=== PATIENT | female | born 1985 | race Caucasian/White ===

== ENCOUNTER 2016-07-04 21:51 | Emergency (ER) | payer MEDICAID, OTHER ==
--- NOTE | 2016-07-04 22:04 | EDM.PDOC ---
ED HPI GENERAL MEDICAL PROBLEM - General Chief Complaint: Trauma Stated Complaint: stepped on a nail left foot Time Seen by Provider: 07/04/16 21:58 Source of Information: Reports: Patient, RN, RN Notes Reviewed History Limitations: Reports: No Limitations - History of Present Illness INITIAL COMMENTS - FREE TEXT/NARRATIVE: Patient presents to the ED at [facility] after she stepped on a nail tacked to a board. Patient is concerned about tetanus. She states its been over 20 years since her last tetanus immunization. Patient states she has some mild pain on the bottom of her mid foot. No previous injury or trauma. No previous left foot surgeries. Onset: Today Onset Date: 07/04/16 Onset Time: 21:30 Location: Reports: Lower Extremity, Left Quality: Reports: Sharp Severity: Mild left foot Pain Score (Numeric/FACES): 4 - Related Data Allergies Allergy/AdvReac Type Severity Reaction Status Date / Time nickel Allergy Rash Verified 07/04/16 22:12 Home Meds: Home Meds Levonorgestrel [Mirena] 1 ea VAG ASDIRECTED 05/26/14 [History] Past Medical History - Past Health History Medical/Surgical History: Denies Medical/Surgical History Social & Family History - Tobacco Use Smoking Status *Q: Current Every Day Smoker Years of Tobacco use: 9 - Alcohol Use Days Per Week of Alcohol Use: 0 - Recreational Drug Use Recreational Drug Use: Yes Drug Use in Last 12 Months: No Recreational Drug Type: Reports: Marijuana/Hashish Review of Systems - Review of Systems Review Of Systems: See Below Constitutional: Denies: Chills, Fever, Weakness Respiratory: Denies: Shortness of Breath, Cough Cardiovascular: Denies: Chest Pain, Palpitations Musculoskeletal: Reports: Foot Pain (left) Skin: Reports: Wound (bottom of left foot) Neurological: Reports: No Symptoms. Denies: Numbness, Paresthesia, Tingling Trauma Exam - Physical Exam Exam: See Below Exam Limited By: No Limitations General Appearance: Reports: Alert, No Apparent Distress Respiratory Exam: Reports: No Respiratory Distress, Lungs Clear, Normal Breath Sounds Cardiovascular: Reports: Regular Rate, Rhythm Extremities: Normal Range of Motion, Tenderness (bottom of left foot), Other ( 0.1cm puncture wound to bottom of mid left foot; small grade venous ooze; no evidence of foreign body) Neurologic: Reports: Alert, Oriented x 3 Skin: Reports: Normal Color, Warm/Dry - Luis Coma Score Best Eye Response (Ware): (4) Open Spontaneously Best Verbal Response (Luis): (5) Oriented Best Motor Response (Ware): (6) Obeys Commands Luis Total: 15 ED TRAUMA EXTREMITY PROCEDURES - Laceration/Wound Repair Left Foot Lac/wound length in cm: 0.1 Appearance: superficial, mildly contaminated Distal NVT: neuro & vascular intact, no tendon injury Skin prep: other (left foot soaked in chlorhexidine bath) Exploration/Debridement/Repair: wound explored, in a bloodless field, explored to base, no foreign material found Closed with: dermabond Course - Vital Signs Last Recorded V/S: Last Vital Signs Temp 37.0 C 07/04/16 22:00 Pulse 80 07/04/16 22:00 Resp 16 07/04/16 22:00 BP 106/68 07/04/16 22:00 Pulse Ox 97 07/04/16 22:00 Departure - Departure Time of Disposition: 22:30 Disposition: Home, Self-Care 01 Condition: good Clinical Impression: Need for Tdap vaccination Puncture wound of foot, left Qualifiers: Encounter type: initial encounter Qualified Code(s): S91.332A - Puncture wound without foreign body, left foot, initial encounter - Discharge Information Instructions: Puncture Wound, VIS, Diphtheria, Tetanus, and Pertussis (DTaP) - CDC Forms: ED Department Discharge Additional Instructions: 1. Stay well hydrated and rest 2. Keep band aid on for at least 24 hours 3. Glue will wear off on its own 4. Tetanus immunization updated today 5. See you Primary provider as symptoms warrant - Problem List Review Problem List Initiated/Reviewed/Updated: Yes
[2016-07-04 22:10] VITALS: BP 106/68
[2016-07-04] MEDS ORDERED: Diphtheria,Pertussis(Acell),Tetanus Vaccine 0.5 ML Syringe IM ONE (22:30)
== END 2016-07-04 22:38 | disposition home or self-care (01) ==
LOC: VM.ED 21:51
DX: S91.332A Puncture wound without foreign body, left foot, initial encounter (principal); F17.210 Nicotine dependence, cigarettes, uncomplicated; Z91.048 Other nonmedicinal substance allergy status; Z23 Encounter for immunization; W22.09XA Striking against other stationary object, initial encounter
CPT/HCPCS: 12001; 90471; 90715; 99283